=== PATIENT | male | born 1940 | race Caucasian/White ===

== ENCOUNTER → 2020-08-26 | Outpatient (CLI) | payer OTHER, BC | LOC: SJCVCIMAG 13:09 | PROVIDERS: ATTEND Internal Medicine Cardiovascular Disease | DX: I07.1 Rheumatic tricuspid insufficiency (principal); I27.20 Pulmonary hypertension, unspecified; I48.91 Unspecified atrial fibrillation; Z79.899 Other long term (current) drug therapy ==